=== PATIENT | male | born 1965 | race Caucasian/White ===

== ENCOUNTER → 2017-08-08 | Outpatient (CLI) | payer OTHER ==
--- NOTE | 2017-08-08 16:23 | RAD ---
Right upper quadrant ultrasound 08/08/2017 Indication: Right upper quadrant pain x4 days Discussion: Ultrasound evaluation of the right upper abdomen was performed. Static images are submitted to PACS. Exam somewhat limited by patient body habitus. The pancreas is not visualized. Liver is diffusely hyperechoic suggesting hepatic steatosis. The liver appears to be normal in size measuring approximately 16.4 cm. Portions of the liver are obscured. The gallbladder is partially obscured, and poorly visualized. No gross abnormalities of the partially visualized gallbladder are identified. The gallbladder may be partially contracted. The common duct is visualized and is nondilated measuring 1 to 2 mm. Right kidney is unremarkable in appearance. Impression: 1. Limited study 2. Poor visualization of the gallbladder. No gross abnormalities are identified. If there is continued clinical concern hepatobiliary imaging may be helpful. 3. Probable hepatic steatosis.
== END | disposition home or self-care (01) ==
LOC: US 15:31
PROVIDERS: ATTEND Family Medicine
DX: R10.11 Right upper quadrant pain (principal)
CPT/HCPCS: 76705